=== PATIENT | female | born 1990 | race Caucasian/White ===

== ENCOUNTER 2020-08-26 11:02 | Outpatient (CLI) | payer BC, SELFPAY ==
--- NOTE | ~2020-08-26 | MMUS_ITS ---
EXAMINATION: MM diagnostic sarah BI w fox, US breast BI complete HISTORY: Left breast pain. TECHNIQUE: ML, MLO and cc Tomosynthesis images of both breasts were performed and synthetic 2-D image s were generated. CAD analysis was submitted and interpreted. High resolution complete bilateral [address] st ultrasound was performed. COMPARISON: None BREAST PARENCHYMAL COMPOSITION: There are scattered areas of fibroglandular density. FINDINGS: MAMMOGRAPHIC FINDINGS: No suspicious mass or architectural distortion, malignant calcification, skin thickening or retractio n is detected. ULTRASOUND: No suspicious mass or shadowing of either breast is detected. IMPRESSION: 1. No mammographic evidence of malignancy 2. Routine mammographic screening beginning at age 40 is recommended. BI-RADS Category 1: Negative Reviewed, dictated and finalized at location A. RNATIONAL MARKETING EXECUTIVE IMPRESSION: 1. No mammographic evidence of malignancy 2. Routine mammographic screening beginning at age 40 is recommended. BI-RADS Category 1: Negative
== END 2020-08-26 11:03 | disposition home or self-care (01) ==
PROVIDERS: PCP Family Medicine; Visit Provider Advanced Practice Midwife
DX: N64.4 Mastodynia (principal)
CPT/HCPCS: 76641; 77062; 77066; G0279

== ENCOUNTER 2020-09-07 00:46 | Outpatient (CLI) | payer BC, SELFPAY ==
[2020-09-07 19:13] LABS: SARS-CoV-2 RNA PCR Negative
== END 2020-09-07 00:47 | disposition home or self-care (01) ==
LOC: ANHCOVIDDT 00:46
PROVIDERS: PCP Family Medicine; Visit Provider Obstetrics & Gynecology
DX: Z01.812 Encounter for preprocedural laboratory examination (principal); Z20.828 Contact with and (suspected) exposure to other viral communicable diseases
CPT/HCPCS: 87635; C9803; U0003

== ENCOUNTER 2020-09-10 11:21 | Outpatient (CLI) | payer BC, SELFPAY | END 2020-09-10 11:22 | disposition home or self-care (01) | LOC: ANHSURGERY 11:27 | PROVIDERS: PCP Family Medicine; Visit Provider Obstetrics & Gynecology | DX: Z01.812 Encounter for preprocedural laboratory examination (principal); N92.0 Excessive and frequent menstruation with regular cycle | CPT/HCPCS: 36415; 86850; 86900; 86901 ==

== ENCOUNTER 2020-09-11 00:59 | Day surgery (SDC) | payer BC, SELFPAY ==
[2020-09-05 14:42] VITALS: BMI 42.6
[2020-09-11] VITALS (14 sets, daily range): BP systolic 109–140; BP diastolic 43–91; PULSE 83–112; RESP 12–20; TEMP 36.1–37.6; O2SAT 94–100
[2020-09-11] MEDS: ACETAMINOPHEN 500 MG TABLET 1000 MG PO (08:17)
[2020-09-11] MEDS: LACTATED RINGERS 1,000 ML 30 ML IV CONT ×2 (08:25→12:16)
[2020-09-11] MEDS: KETOROLAC 15 MG/ML VIAL (*BKC) IV PUSH (08:32)
--- NOTE | 2020-09-11 08:52 | WPDHPUPDATE1 ---
History and Physical Update Update Date/Time: 09/11/20 08:52 History and Physical has been reviewed, including an updated exam of the patient. There are NO changes in the patient's condition. Risks, benefits, and alternatives have been discussed and questions answered. Patient agrees to proceed with procedure.
--- NOTE | 2020-09-11 08:56 | WPDANESEPPF ---
Anes - Initial Pre Proc Eval Procedure: Operation Date: 09/11/20 09:30 Proposed Procedures p Total Laparoscopic Hysterectomy - Marli Sher MD Date/Time: 09/11/20 08:56 Surgeon: Marli Sher MD Pre Op Diagnosis: Menorrhagia Patient Data Age: 30 Gender: F Height: 5 ft 8 in Weight: 129.9 kg Last Vital Signs Temp 97.0 F L 09/11/20 07:39 Pulse 84 09/11/20 07:39 Resp 20 09/11/20 07:39 BP 120/77 09/11/20 07:39 Pulse Ox 100 09/11/20 07:39 Allergies Allergy/AdvReac Type Severity Reaction Status Date / Time latex Allergy Severe SWELLING & Verified 09/11/20 08:21 ITCHING Penicillins Allergy Severe Difficulty Verified 09/05/20 14:04 Breathing Home Medications Medication Instructions Recorded Confirmed Type alprazolam 0.5 mg PO TID PRN 09/05/20 09/11/20 History calcium carbonate-vitamin D3 1 tablet PO DAILY 09/05/20 09/11/20 History [Calcium with Vitamin D] dexmethylphenidate 30 mg PO DAILY 09/05/20 09/11/20 History melatonin 1 mg PO HS 09/05/20 09/11/20 History multivit with min-folic acid 1 tablet PO DAILY 09/05/20 09/11/20 History [Adult One Daily Multivitamin] Patient hx anesthesia problems: post op nausea/vomiting Family hx anesthesia problems: none PMFSH Past Medical History Medical History (Updated 09/10/20 @ 12:45 by Andrey Layton MD) ADHD (attention deficit hyperactivity disorder) Giang's palsy Morbid obesity Social History Social History Years smoked: 8 Smoking status: Former smoker Smoking end date: 03/04/19 Substance use type: marijuana Other substance usage details: MARIJUANA TWICE A MONTH Living arrangements: with family Spiritual care concerns: No Anes - Eval Final PreProcedure Day of Procedure 09/11/20 08:56 Patient weight: morbidly obese Heart: regular rate and rhythm Lungs: clear to auscultation Airway: Mallampati scale class II Neurological: alert and oriented Last oral intake: >/= 8 hours ASA classification: III Anesthetic plan: proceed Anesthesia type and monitoring: general ETT and standard monitoring Informed Consent: The patient's anesthetic plan and its attendant risks and benefits were discussed with the patient/family/POA. Questions were solicited and answers provided to the satisfaction of the patient/family/POA.
[2020-09-11] MEDS: SCOPOLAMINE 1.5 MG PATCH TRANSDERM (09:09)
[2020-09-11] MEDS: GENTAMICIN SULFATE INJ 445 MG in DEXTROSE 5% 100 ML 100 MG IVPB (09:29)
[2020-09-11] MEDS: CLINDAMYCIN 900 MG/D5W 50 ML 900 MG/50 ML PIGGYBACK 50 MG IVPB (10:00)
--- NOTE | 2020-09-11 11:55 | SUR.OPER ---
uterus 201 gm
--- NOTE | 2020-09-11 12:05 | PM.PROC ---
Procedure Note - Detailed Date of procedure: 09/11/20 Pre-op diagnosis: Menorrhagia Myoma Post-op diagnosis: same Procedure performed: Total laparoscopic hysterectomy. Bilateral salpingectomy Description of procedure: The patient was taken to the operating room. She was prepped and draped in the dorsal lithotomy position. A speculum was placed in the vagina. The cervix was grasped with a tenaculum. Stay sutures were placed at 3 and 9:00 a.m. of 0 Vicryl. The stay sutures were brought through the Kitty up. The KASEY manipulator was placed in the vagina with a fixed Kitty cup. The cup was then pushed up around the cervix. The sutures were tied to the handle of the KASEY manipulator. A 5 mm incision was made on the abdominal skin of the left upper quadrant using a scalpel. A 5 mm trocar was inserted into the intra-abdominal cavity under direct visualization the scope. Pneumoperitoneum was achieved. An 11 mm incision was made in the left lower quadrant of the abdomen with a scalpel. A 11 mm trocar was inserted into the intra-abdominal cavity under direct visualization the scope. A 5 mm periumbilical incision was made. A 5 mm scope was placed into the intra-abdominal cavity under direct visualization of the scope. The right lower quadrant trocar was also inserted. It was a 5 mm trocar and it was done identical fashion. The suspensory ligament of the ovary was cauterized and transected with ligature cautery in a bilateral fashion. The fallopian tubes were cauterized and transected in a bilateral fashion with LigaSure cautery. The round ligaments were cauterized and transected in bilateral fashion with LigaSure cautery. The round ligaments were cauterized and transected bilaterally with LigaSure cautery. The broad ligaments were cauterized and transected along the lateral aspects of the uterus down the level of the uterine arteries. A bladder flap was created using sharp and blunt dissection. The ureters were dissected out bilaterally down to the level of the uterine arteries. They could be visualized from the pelvic brim down the uterine arteries. Staying very close to the cervix the parametrium was cauterized transected in a stepwise fashion down to the level of the Kitty cup. The Bladder flap was moved distally over the Kitty cup using sharp and blunt dissection. The impression of the entire cup was visualized around the cervix. An incision was made with unipolar cautery down under the Kitty cup creating a colpotomy incision all the way around the cervix. The uterus was taken out through the vagina. A pneumo occluder was placed in the vagina. The vagina was closed with 0 V lock suture in a running fashion. The fallopian tubes were removed using cautery. There were separate from the adnexa on the paratubal tissue was transected cauterized. The tubal regret the left lower quadrant trocar site. The ureters were identified again and found to be intact to the level of the uterine arteries. The pelvis was irrigated with a copious amount of antibiotic irrigation. The pneumoperitoneum was reduced. The trocars were removed. The skin was closed subcuticular 4 Monocryl covered with Dermabond. The pneumo occluder was removed from the vagina. The vagina was irrigated with Betadine. The patient tolerated the procedure well. She was taken to the recovery room in stable condition. Sponge lap and needle counts were correct x2. Anesthesia: GETA Surgeon: Marli Sher MD Estimated blood loss (mL): 200 Drains: No Packing: No Pathology: yes Complications: No immediate complications Condition: stable Disposition: PACU Findings: Grossly normal appearing tubes and ovaries. Uterus - 11
[2020-09-11] MEDS: HYDROmorphone HCL INJ (*CRX) 1 MG/ML SYR 0.5 MG IV PUSH ×2 (12:36→12:48)
--- NOTE | 2020-09-11 14:17 | PC.NURSE ---
This patient, Katherine Ibanez, was admitted to OB 2nd Floor Room 279-00. Patient oriented to hospital policies and general routines including ID bracelet, bed and alarms, visiting hours, pain management, procedures, bathroom and other care routines, personal items, smoking policy, room service/diet, and visiting hours. Information on how to activate the Rapid Response Team has been discussed. Patient is encouraged to report perceived risks to care and to ask questions if they do not understand what they are told or what they should do.
[2020-09-11] MEDS: KETOROLAC 30 MG/ML VIAL (*BKC) IV PUSH (14:29)
[2020-09-11] MEDS: HYDROcodone/acetaminophen (*CRX) 5-325 MG TABLET 1 TAB PO ×2 (16:37→20:33)
[2020-09-11] MEDS: DOCUSATE SODIUM 100 MG CAPSULE PO (20:32)
[2020-09-11] MEDS: SIMETHICONE 80 MG TAB.CHEW PO (20:32)
[2020-09-12 01:21] VITALS: BP 117/49; PULSE 80; PULSE 99; RESP 16; TEMP 36.8; O2SAT 98; O2SAT 99
[2020-09-12] MEDS: HYDROcodone/acetaminophen (*CRX) 5-325 MG TABLET 1 TAB PO ×2 (05:45→09:22)
[2020-09-12] MEDS: IBUPROFEN 600 MG TABLET PO (05:45)
[2020-09-12] MEDS: SIMETHICONE 80 MG TAB.CHEW PO ×2 (05:45→09:22)
[2020-09-12 05:58] VITALS: BP 118/60; PULSE 82; RESP 18; TEMP 37.2; O2SAT 99
--- NOTE | 2020-09-12 07:24 | WPDANESPN ---
Anes - Prog Note Post-Op Date/Time: 09/12/20 07:24 Cardiovascular status: normal Respiratory status: normal Airway patency: baseline Mental status: baseline Post-Op hydration status: normal Vital Signs: Last Vital Signs Temp 37.2 C 09/12/20 05:58 Pulse 82 09/12/20 05:58 Resp 18 09/12/20 05:58 BP 118/60 09/12/20 05:58 Pulse Ox 99 09/12/20 05:58 Pain Score (VAS): 0 I/O: Intake & Output 09/11/20 09/11/20 09/12/20 15:59 23:59 07:59 Intake Total 239.245 6253 1200 Output Total 480 249 9784 Balance 161.125 780 -1100 Post-procedural complaints: none Patient Feedback: Patient satisfied with anesthetic care.
--- NOTE | 2020-09-12 07:41 | PM.GYNPNOP ---
ORDERING MACHINE OPERATOR - A/P Postoperative Procedures: Procedures Operation Date: 09/11/20 09:30 Actual Procedures Side Surgeon p Total Laparoscopic Hysterectomy Bilateral Salpingectomy Bilateral R. Pedro Sher MD Postoperative day: 1 Postoperative status: doing well and other (Tollerating Regular Diet) Postoperative plan: routine post-op care and discharge Time Spent With Patient Time: Total time spent is greater than 50% in coordination of care (as documented) at patient's floor/unit and/or counseling patient: Time with patient: 15 - 25 minutes ORDERING MACHINE OPERATOR- PN:Subj Post-Op Subjective Date/time seen: 09/12/20 07:41 Subjective: patient reports feeling better, pain is well controlled and patient is tolerating oral intake Exam Const: General: cooperative, healthy appearing, comfortable and no acute distress Resp: Auscultation: no crackles, no rales, no rhonchi and no wheezes Cardio: Rhythm: regular rhythm Heart sounds: no click and no murmurs GI: Inspection: non-distended Auscultation: normal bowel sounds Other: Incisions - CDI Extrem: General: normal to inspection, no pedal edema and no calf tenderness ORDERING MACHINE OPERATOR - PN: Obj Data Vital Signs Vital Signs: Vital Signs - 24 hr 09/11/20 12:16 09/11/20 12:30 09/11/20 12:45 Temperature 97.9 F Pulse Rate 94 83 84 Respiratory Rate 18 14 12 Blood Pressure 131/76 122/76 124/80 Pulse Oximetry 100 100 100 09/11/20 13:00 09/11/20 13:15 09/11/20 13:26 Temperature Pulse Rate 98 86 99 Respiratory Rate 14 14 14 Blood Pressure 128/89 134/82 140/91 H Pulse Oximetry 97 94 95 09/11/20 13:52 09/11/20 14:00 09/11/20 14:30 Temperature 99.6 F Pulse Rate 95 98 99 Respiratory Rate 18 18 18 Blood Pressure 122/63 121/61 122/43 L Pulse Oximetry 95 97 98 09/11/20 15:00 09/11/20 16:00 09/11/20 17:00 Temperature Pulse Rate 106 H 112 H 107 H Respiratory Rate 18 18 18 Blood Pressure 109/53 L 112/58 L 111/55 L Pulse Oximetry 96 99 96 09/11/20 21:00 09/12/20 01:21 12/10/20 05:58 Temperature 99.2 F 98.2 F 99.0 F Pulse Rate 99 99 82 Respiratory Rate 16 16 18 Blood Pressure 124/57 L 117/49 L 118/60 Pulse Oximetry 99 99 99 Intake/Output Intake/Output: Intake & Output 09/09/20 09/10/20 09/11/20 09/12/20 23:59 23:59 23:59 23:59 Intake Total 5682.620 5796 Output Total 450 2300 Balance 941.125 -1100 Meds/Results Medications: Active Medications Generic Name Dose Route Start Last Admin Trade Name Freq PRN Reason Stop Dose Admin Hydrocodone Bitart/Acetaminophen 1 tab 09/11/20 13:31 09/12/20 05:45 Hydrocodone/Acetaminophen (*Crx) 5-325 Mg Tablet PO 1 tab Q3H PRN Administration Pain Rated 5 or Less Hydrocodone Bitart/Acetaminophen 1 tab 09/11/20 13:31 Hydrocodone/Acetaminophen (*Crx) 10-325 Mg Tablet PO Q3H PRN Pain Rated 6 or Greater Alprazolam 0.5 mg 09/11/20 13:31 Alprazolam (*Crx) 0.5 Mg Tablet PO TID PRN Anxiety Calcium Carbonate 500 mg 09/12/20 09:00 Calcium/Vitamin D 500 Mg Tablet PO QAM [facility] Docusate Sodium 100 mg 09/12/20 17:00 09/11/20 20:32 Docusate Sodium 100 Mg Capsule PO 100 mg BID CYNDI Administration Ibuprofen 600 mg 09/11/20 13:31 09/12/20 05:45 Ibuprofen 600 Mg Tablet PO 600 mg Q6H PRN Administration Cramping Ketorolac Tromethamine 30 mg 09/11/20 13:31 09/11/20 14:29 Ketorolac 30 Mg/Ml Vial (*Bkc) IV PUSH 09/16/20 13:32 30 mg Q6H PRN Administration Pain Rated 4-6 Multivitamins/Calcium 1 tablet 09/12/20 09:00 Therapeutic Multivitamins/Minerals Tab (*Bkc) PO DAILY CYNDI Naloxone HCl 0.1 mg 09/11/20 13:31 Naloxone Hcl 0.4 Mg/Ml Vial IV PUSH Q2M PRN Respiratory rate less than 10 Non-Formulary Medication 30 mg 09/12/20 09:00 Dexmethylphenidate PO 01/09/21 09:01 DAILY CYNDI Non-Formulary Medication 1 mg 09/11/20 21:00 Melatonin PO 10/11/20 21:01 HS CYNDI Ondansetron HCl 4 mg 09/11/20 13:31 Ondansetron
[2020-09-12 08:15] VITALS: BP 118/50; PULSE 97; RESP 18; TEMP 37.2; O2SAT 98
[2020-09-12] MEDS: DOCUSATE SODIUM 100 MG CAPSULE PO (09:22)
== END 2020-09-12 09:51 | disposition home or self-care (01) ==
LOC: ANHSURGERY 09:10 → ANHOB2 13:34
PROVIDERS: PCP Family Medicine; Visit Provider Obstetrics & Gynecology
PROC: 0UT9FZZ Resection of Uterus, Via Natural or Artificial Opening With Percutaneous Endoscopic Assistance (ICD-10-PCS; CPT 58571; principal; 2020-09-11 09:30)
DX: N92.0 Excessive and frequent menstruation with regular cycle (principal); D25.1 Intramural leiomyoma of uterus; N73.6 Female pelvic peritoneal adhesions (postinfective); F90.9 Attention-deficit hyperactivity disorder, unspecified type; G51.0 Bell's palsy; F12.90 Cannabis use, unspecified, uncomplicated; Z87.891 Personal history of nicotine dependence; E66.01 Morbid (severe) obesity due to excess calories; Z68.41 Body mass index [BMI] 40.0-44.9, adult
CPT/HCPCS: 58571; 88307; 99199; A9270; J0330; J1100; J1170; J1200; J1580; J1885; J2250; J2405; J2704; J2710; J3010; J7030; J7120